=== PATIENT | female | born 1960 | race American Indian/Alaskan Native ===

== ENCOUNTER 2017-03-03 12:22 | Outpatient (CLI) | payer OTHER ==
--- NOTE | 2017-03-03 17:49 | Vascular Lab Report ---
ABDOMINAL AORTA DUPLEX EXAM: REASON FOR EXAM: Concern for abdominal aortic aneurysm COMMENTS ON THE AORTA: The aorta is patent. No aneurysmal dilatation is noted. Mild atherosclerotic change is identified. The proximal aorta measures up to 2.5 cm. The mid aorta measures up to 1.8 cm. The distal aorta measures up to 1.4 cm. COMMENTS ON THE COMMON ILIAC ARTERIES: The common iliac arteries are patent. No aneurysmal dilatation is noted. Mild atherosclerotic change is identified. The right common iliac artery measures up to 1.09 cm. The left common iliac artery measures up to 0.86 cm. IMPRESSION: No evidence of abdominal aortic aneurysm.
== END 2017-03-03 12:23 | disposition home or self-care (01) ==
LOC: US 12:22 → VAS 12:23
PROVIDERS: ATTEND Family Medicine
DX: I71.9 Aortic aneurysm of unspecified site, without rupture (principal)
CPT/HCPCS: 93979

== ENCOUNTER 2019-11-28 07:55 | Outpatient (CLI) | payer OTHER ==
--- NOTE | 2019-11-28 11:04 | Mammography Report ---
DIGITAL SCREENING MAMMOGRAM WITH CAD, 11/28/2019 INDICATION: Routine screening mammography. TECHNIQUE: Digital bilateral 2D mammography was obtained in the craniocaudal and mediolateral obliq ue projections. This examination was interpreted with the benefit of Computer-Aided Detection analysi s. COMPARISON: 07/31/2017 FINDINGS: Breast Density: The breasts are almost entirely fatty. There is no evidence of dominant mass, suspicious calcifications or architectural distortion in eithe r breast. IMPRESSION: No mammographic evidence of malignancy. Follow up recommendation: Routine yearly BI-RADS Category 1: Negative. A "normal" or negative report should not discourage follow up or biopsy of a clinically significant f inding. A written summary of these findings will be mailed to the patient. The patient will be entered into a mammography reporting system which will generate a reminder letter for the patient's next appointmen t at the appropriate interval. The [employer] recommends yearly mammograms starting at age 40 and continuing as l felicita as a woman is in good health. Breast MRI is recommended for women with an approximate 20-25% or greater lifetime risk of breast cancer, including women with a strong family history of breast or ova aries cancer or who have been treated for Hodgkin's disease. Signer Name: Sim Hilliard MD Signed: 11/28/2019 11:00 AM Workstation Name: [id number]
== END 2019-11-28 07:56 | disposition home or self-care (01) ==
LOC: SPVWC 07:55
PROVIDERS: ATTEND Family Medicine
DX: Z12.31 Encounter for screening mammogram for malignant neoplasm of breast (principal); N64.89 Other specified disorders of breast
CPT/HCPCS: 77067